=== PATIENT | female | born 1940 | race Caucasian/White ===

== ENCOUNTER → 2019-01-19 14:56 | Outpatient (CLI) | payer MEDICARE, OTHER, SELFPAY ==
--- NOTE | 2019-01-20 16:03 | PM.PFT.1 ---
Pulmonary Function Test Referral & Results Date Patient Seen: 01/19/19 Requesting provider: Alex Hussein Results: The spirometry demonstrates an FVC of 2.29 L which is 89% of predicted. The FEV1 was measured at 1.69 L which is 89% of predicted. The FEV1/FVC ratio was 70 for which is 99% of predicted. No bronchodilator was administered No lung volumes were obtained The diffusing capacity was measured at 12.07 which is 52% of predicted. No hemoglobin value was provided, so no correction for potential anemia could be made, if appropriate. The maximum voluntary ventilation was not performed Interpretation: This study demonstrates perhaps very mild obstructive lung disease There is more significant reduction in diffusing capacity suggesting more significant disease at the capillary alveolar level
== END ==
PROVIDERS: Visit Provider Internal Medicine Cardiovascular Disease
DX: R06.02 Shortness of breath (principal); J98.8 Other specified respiratory disorders; Z87.891 Personal history of nicotine dependence
CPT/HCPCS: 94010; 94729